=== PATIENT | female | born 1980 | race Hispanic/Latino ===

== ENCOUNTER 2018-03-28 00:59 | Emergency (ER) | payer SELFPAY ==
[2018-03-28] MEDS ORDERED: Lorazepam 2 MG/ML VIAL ONE (01:13)
[2018-03-28 01:57] LABS: #Basophils 0.1 thou/uL (0.0-0.2); #Eosinphils 0.1 thou/uL (0.0-0.7); #Lymphocytes 2.2 thou/uL (1.20-3.40); #Monocytes 0.7 thou/uL (0.11-0.59); #Neutrophils 9.3 thou/uL (1.40-6.50); %Basophils 0.6 % (0.0-1.0); %Eosinophils 1.1 % (0.0-10.0); %Lymphocytes 17.4 % (21.0-51.0); Hemoglobin 13.1 g/dL (12.0-16.0); Mean Corpuscular HGB CONC 35.5 g/dL (32.0-36.0); Mean Corpuscular Hemoglobin 30.9 pg (27.0-31.0); Mean Platelet Volume 8.3 fL (7.4-10.4); Platelet Count 227 thou/uL (130-400); RBC Distribution Width 11.3 % (11.5-14.5); Red Blood Cell (RBC) Count 4.23 mill/uL (4.20-5.40); White Blood Cell (WBC) Count 12.4 thou/uL (4.8-10.8)
[2018-03-28 02:03] LABS: Acetaminophen Less than 6.0 mcg/mL (10.0-30.0); Alcohol Less than 10 mg/dL (Less than 10); CK (CPK) 86 U/L (29-168); Salicylate Less than 8.0 mg/dL (15.0-30.0)
[2018-03-28 02:04] LABS: ALT (SGPT) 15 U/L (8-55); AST (SGOT) 14 U/L (5-34); Albumin 4.2 g/dL (3.5-5.0); Alkaline Phosphatase 87 U/L (40-150); Anion Gap 14 mmol/L (10-20); BUN (Urea Nitrogen) 9 mg/dL (7.0-18.7); Bilirubin, Total 0.4 mg/dL (0.2-1.2); Calc. Creatinine Clearance 0 mL/min (70-130); Calcium 9.3 mg/dL (7.8-10.44); Carbon Dioxide 17 mmol/L (22-29); Chloride 111 mmol/L (98-107); Estimated GFR-MDRD 77; Globulin 3.4 g/dL (2.4-3.5); Glucose 116 mg/dL (70-105); Potassium 3.4 mmol/L (3.5-5.1); Protein, Total 7.6 g/dL (6.0-8.3); Sodium 139 mmol/L (136-145)
[2018-03-28 03:24] LABS: Bilirubin Negative (Negative); Blood, Urine Moderate (Negative); Clarity CLEAR (Clear); Glucose, Urine (Dipstick) Negative (Negative); Leukocyte Trace (Negative); Nitrite Negative (Negative); Protein, Urine (Dipstick) Negative (Neg-Trace); Specific Gravity, Urine 1.008 (1.002-1.036); Urobilinogen 0.2 mg/dL (0.2-1.0); pH, Urine 7.5 (5.0-9.0)
[2018-03-28 03:27] LABS: Bacteria/HPF None Seen HPF (None Seen); Hyaline Casts/LPF 0-3 HYALINE CAST LPF (0-3 Hyaline); Pathc Cast-AUWi Flag 0.14 (0-2.49); Squamous Epithelial 0-3 HPF (0-3); WBC/HPF 0-3 HPF (0-3)
[2018-03-28 03:30] LABS: Pregnancy Test - Urine (BHCG) Negative (Negative); Pregu Control Background? CLEAR/WHITE (CLR/WHITE); Pregu Control Bar Appear? YES (CONTROL BAR); Specific Gravity 1.008 (1.002-1.036)
[2018-03-28 03:39] LABS: Amphetamine Not Detected (NotDetected); Barbiturates Screen Not Detected (NotDetected); Benzodiazepine Screen Not Detected (NotDetected); Cocaine Metabolite Screen Not Detected (NotDetected); Medtox Control Line Valid? VALID (VALID); Medtox Reader # READER 1; Methadone Not Detected (NotDetected); Methamphetamine Not Detected (NotDetected); Opiate Screen Not Detected (NotDetected); Oxycodone Screen Not Detected (NotDetected); Phencyclidine (PCP) Not Detected (NotDetected); THC/Cannabinoid Screen Not Detected (NotDetected); Tricyclic Screen Not Detected (NotDetected)
== END 2018-03-28 06:50 | disposition home or self-care (01) ==
LOC: ERS 00:59
DX: T47.0X2A Poisoning by histamine H2-receptor blockers, intentional self-harm, initial encounter (principal); D64.9 Anemia, unspecified; F41.9 Anxiety disorder, unspecified; Z79.899 Other long term (current) drug therapy
CPT/HCPCS: 36415; 80053; 80306; 80307; 81003; 81015; 81025; 82550; 84443; 85025; 93005; 96374; A4353; J2060

== ENCOUNTER 2018-03-29 13:56 | Emergency (ER) | payer SELFPAY ==
[2018-03-29 14:36] LABS: Pregnancy Test - Urine (BHCG) Negative (Negative)
[2018-03-29 14:37] LABS: Pregu Control Background? CLEAR/WHITE (CLR/WHITE); Pregu Control Bar Appear? YES (CONTROL BAR); Specific Gravity 1.024 (1.002-1.036)
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
== END 2018-03-29 16:19 | disposition home or self-care (01) ==
LOC: ERS 13:56
DX: S06.0X9A Concussion with loss of consciousness of unspecified duration, initial encounter (principal); S00.83XA Contusion of other part of head, initial encounter; D64.9 Anemia, unspecified; F41.9 Anxiety disorder, unspecified; W20.8XXA Other cause of strike by thrown, projected or falling object, initial encounter
CPT/HCPCS: 70450; 70486; 81025

== ENCOUNTER 2019-01-25 14:44 | Outpatient (CLI) | payer OTHER ==
--- NOTE | 2019-01-25 15:21 | ULT ---
Transvaginal pelvic ultrasound INDICATION: Pelvic mass COMPARISON: Prior pelvic ultrasound dated June 02, 2015 FINDINGS: Grayscale, color Doppler and spectral Doppler images were obtained. The uterus measures 8.3 x 5.9 x 4.9 cm. The endometrial stripe measures 1.5 cm. The right and measures 2.8 x 1.9 x 2.4 cm. There is normal flow to the right ovary. The left ovary is predominantly involved with a large cystic abnormality. The large cyst measures 7.9 x 6.7 x 8 cm. This is slightly smaller than on the comparison examination where it measured 9.7 x 9.3 x 8.1 cm. There is suspected debris within this cystic abnormality. The left ovary measured 9.7 x 10.4 x 6.7 cm. There is normal flow to the left ovary. No free fluid is identified. There are small nabothian cysts seen within the level cervix. IMPRESSION: Slight interval decrease in size involving the large cystic abnormality involving the lef t adnexa. Findings are suspicious for a large left cystadenoma. Would recommend further evaluation with MRI of the pelvis with and without contrast for additional characterization.
== END 2019-01-25 14:45 | disposition home or self-care (01) ==
LOC: BICULT 14:44
PROVIDERS: ATTEND Physician Assistant
DX: R19.00 Intra-abdominal and pelvic swelling, mass and lump, unspecified site (principal); N83.8 Other noninflammatory disorders of ovary, fallopian tube and broad ligament
CPT/HCPCS: 76856; 93976

== ENCOUNTER 2019-03-22 12:21 | Emergency (ER) | payer SELFPAY ==
[2019-03-22 13:41] LABS: #Basophils 0.1 thou/uL (0.0-0.2); #Eosinphils 0.2 thou/uL (0.0-0.7); #Monocytes 0.3 thou/uL (0.11-0.59); #Neutrophils 4.2 thou/uL (1.40-6.50); %Basophils 0.9 % (0.0-1.0); %Eosinophils 2.3 % (0.0-10.0); %Lymphocytes 29.2 % (21.0-51.0); %Monocytes 4.9 % (0.0-10.0); %Neutrophils 62.7 % (42.0-75.0); Hemoglobin 12.7 g/dL (12.0-16.0); Mean Corpuscular HGB CONC 34.5 g/dL (32.0-36.0); Mean Corpuscular Hemoglobin 29.9 pg (27.0-31.0); Mean Corpuscular Volume 86.9 fL (78.0-98.0); Mean Platelet Volume 8.5 fL (7.4-10.4); Platelet Count 259 thou/uL (130-400); RBC Distribution Width 11.6 % (11.5-14.5); Red Blood Cell (RBC) Count 4.26 mill/uL (4.20-5.40); White Blood Cell (WBC) Count 6.8 thou/uL (4.8-10.8)
[2019-03-22 13:48] LABS: BHCG - Serum Negative (NEGATIVE); Pregs Control Background? CLEAR/WHITE (CLR/WHITE); Pregs Control Bar Appear? YES (CONTROL BAR)
[2019-03-22 14:09] LABS: ALT (SGPT) 11 U/L (8-55); AST (SGOT) 14 U/L (5-34); Albumin 4.3 g/dL (3.5-5.0); Alkaline Phosphatase 82 U/L (40-110); Anion Gap 10 mmol/L (10-20); BUN (Urea Nitrogen) 9 mg/dL (7.0-18.7); Bilirubin, Total 0.4 mg/dL (0.2-1.2); Calc. Creatinine Clearance 0 mL/min (70-130); Calcium 8.9 mg/dL (7.8-10.44); Carbon Dioxide 25 mmol/L (22-29); Chloride 106 mmol/L (98-107); Estimated GFR-MDRD Greater than 90; Globulin 2.9 g/dL (2.4-3.5); Glucose 87 mg/dL (70-105); Potassium 3.6 mmol/L (3.5-5.1); Protein, Total 7.2 g/dL (6.0-8.3); Sodium 137 mmol/L (136-145)
[2019-03-22 14:30] LABS: Bacteria/HPF None Seen HPF (None Seen); Bilirubin Negative (Negative); Blood, Urine 3+ (Negative); Clarity Clear (Clear); Glucose, Urine (Dipstick) Normal (Negative); Leukocyte Negative Leu/uL (Negative); Nitrite Negative (Negative); Protein, Urine (Dipstick) Negative (Neg-Trace); Urobilinogen Normal mg/dL (Less than 2); WBC/HPF 0-3 HPF (0-3)
== END 2019-03-22 14:57 | disposition home or self-care (01) ==
LOC: ERS 12:21
DX: N94.6 Dysmenorrhea, unspecified (principal)
CPT/HCPCS: 36415; 80053; 81003; 81015; 84703; 85025; 99284

== ENCOUNTER 2019-06-21 08:49 | Day surgery (SDC) | payer OTHER ==
[2019-06-18 16:25] LABS: Mean Corpuscular HGB CONC 34.3 g/dL (32.0-36.0); Mean Corpuscular Hemoglobin 30.3 pg (27.0-31.0); Mean Corpuscular Volume 88.3 fL (78.0-98.0); Mean Platelet Volume 8.3 fL (7.4-10.4); Platelet Count 256 thou/uL (130-400); RBC Distribution Width 11.8 % (11.5-14.5); Red Blood Cell (RBC) Count 4.31 mill/uL (4.20-5.40); White Blood Cell (WBC) Count 9.6 thou/uL (4.8-10.8)
[2019-06-18 16:28] LABS: BHCG - Serum Negative (NEGATIVE); Pregs Control Background? CLEAR/WHITE (CLR/WHITE); Pregs Control Bar Appear? YES (CONTROL BAR)
[2019-06-18 16:30] VITALS: BMI 19.8
[2019-06-21] MEDS ORDERED: Famotidine/PF 20 mg/2ml Vial ONE (09:07)
[2019-06-21] MEDS ORDERED: CeleCOXIB 100 MG CAP ONE ×2 (09:08)
[2019-06-21] MEDS ORDERED: Gabapentin 300 MG CAP ONE (09:09)
[2019-06-21] MEDS ORDERED: Rocuronium Bromide 10 MG/ML (10ML VIAL) ONE (09:29)
[2019-06-21] MEDS ORDERED: Dexamethasone 20 MG/5 ML VIAL ONE (09:29)
[2019-06-21] MEDS ORDERED: Lidocaine 1% PF 5 ML VIAL ONE (09:29)
[2019-06-21] MEDS ORDERED: Ondansetron PF 4 MG/2 ML Vial ONE (09:29)
[2019-06-21] MEDS ORDERED: PHENYLEPHRINE-NS 100 MCG/ML 10 ML SYRINGE ONE (09:29)
[2019-06-21] MEDS ORDERED: PROPOFOL 200 MG/20 ML VIAL ONE (09:29)
[2019-06-21] MEDS ORDERED: Lidocaine 1% w/Epinephrine 1:100K 20 ML VIAL ONE (09:36)
[2019-06-21] MEDS ORDERED: Methylene Blue 50 MG/10 ML AMPUL ONE (09:36)
[2019-06-21] MEDS ORDERED: Bupivacaine PF 0.5% 30 ML VIAL ONE (09:36)
[2019-06-21] MEDS ORDERED: Fentanyl 100 MCG/2 ML VIAL ONE ×3 (10:31→13:16)
[2019-06-21] MEDS ORDERED: Midazolam HCl 2 mg/2 ml Vial ONE (10:44)
[2019-06-21] MEDS ORDERED: Promethazine HCl 25 MG/ML VIAL SLOW IVP PRN (11:50)
[2019-06-21] MEDS ORDERED: Meperidine HCl/PF 25 MG/ML VIAL SLOW IVP PRN (11:50)
[2019-06-21] MEDS ORDERED: HYDROmorphone 2 MG/ML VIAL SLOW IVP PRN (11:50)
[2019-06-21] MEDS ORDERED: Ondansetron HCl/PF 4 MG/2 ML Vial IVP PRN (11:50)
[2019-06-21] MEDS ORDERED: SUGAMMADEX SODIUM 200 MG/2 ML VIAL ONE (12:23)
[2019-06-21] MEDS ORDERED: Meperidine HCl/PF 25 MG/ML VIAL ONE (14:17)
[2019-06-21] MEDS ORDERED: HYDROcodone/Acetaminophen 5/325 mg Tablet ONE (15:42)
--- NOTE | 2019-06-21 19:30 | OP ---
DATE OF PROCEDURE: 06/21/2019 PREOPERATIVE DIAGNOSES: 1. Left adnexal mass. 2. Infertility. POSTOPERATIVE DIAGNOSES: 1. Left ovarian endometrioma. 2. Pelvic adhesive disease. SUPERINTENDENT JOB: Rosemarie Leger PA-C. PROCEDURES PERFORMED: 1. Robotic-assisted left salpingo-oophorectomy. 2. Lysis of adhesions. COMPLICATIONS: None. INTRAOPERATIVE FINDINGS: 1. Normal-appearing vaginal mucosa and cervix. 2. Cervical stenosis, unable to pass the smallest Hegar dilator or uterine sound. 3. Normal-appearing uterus, right ovary, and right fallopian tube. 4. Large approximate 9 to 10 cm left ovarian endometrioma. 5. Pelvic adhesive disease with dense adhesions of the left ovary and cyst wall to the left pelvic sidewall, colon, and cul-de-sac. DESCRIPTION OF PROCEDURE: The patient was taken back to the OR with IV fluids running. When she was in the OR, she was placed in dorsal supine position, and general anesthesia was obtained. Once the patient was asleep, the arms were tucked at her side, and the patient's abdomen and vagina were prepped and draped in normal fashion for gynecologic laparoscopy. The surgeons were gowned and gloved. The bladder was drained with a Sow catheter. An operative speculum was placed in the vagina, and the anterior lip of the cervix was easily identified and grasped with a single-tooth tenaculum. The uterine sound was not able to pass through the cervix. A 9-Welsh Hegar dilator was attempted to pass through the cervix and would also not pass easily with gentle pressure. At this point, the decision to perform chromotubation as discussed at her preoperative visit was terminated for fear of injury to the cervix or uterus. After the tenaculum was removed, a sponge on a stick was placed in the vagina, and the operative speculum was removed. The surgeon's gown and gloves were changed, and attention was turned to the laparoscopic portion of the case. Beginning at the infraumbilical fold, anesthesia was injected underneath the skin, and a 12 mm skin incision was made. A Veress needle was passed through the skin incision, and the abdomen was insufflated without difficulty. Once the abdomen was distended, the Veress needle was removed, and a 12 mm trocar was placed through this incision. The patient was placed in Trendelenburg position with the above findings noted. Immediately on the patient's left was a large ovarian cyst. On the patient's right, there were normal-appearing right ovary and fallopian tube. The cyst was incised, and chocolate-appearing cyst fluid consistent with an endometrioma was suctioned and drained from the cyst. The cyst and ovary were manipulated and noted to be adhered to the left pelvic sidewall, the colon, and the uterus on the patient's left side. The ureter on the patient's left side was identified and noted to be away from the IP ligament and coursing below the site of the cyst wall adhesions. The ovarian stroma was incised. The cyst wall was grasped, and an attempt was made to perform cystectomy alone. Approximately 50% through the cystectomy, the ovary was carefully inspected. The remaining portion of the large cyst was noted to be densely adhered to the ovary. At this point, the ovary was deemed to be unsalvageable, and the decision to perform left salpingo-oophorectomy was made. The patient's IP ligament on the left side was identified, grasped, cauterized, and transected. The left fallopian tube was cauterized and incised freeing it from the left adnexa and pelvis. The remaining ovarian and cyst wall tissue was removed from the ovary and from the cul-de-sac with a combination of hydrodissection and fine dissection technique with monopolar scissors. After the left ovary and cyst were removed, they were placed into an EndoCatch bag. The left pelvic sidewall and cul-de-sac were copiously irrigated and suctioned dry. Any small areas of bleeding were controlled with cauterization. A layer of Renetta hemostatic powder was placed over this area of dissection, and it was inspected with hemostasis noted. Counts were correct. All instruments were removed from the abdomen. The gas was released from the abdomen, as well as the 4 ports. The surgeon's finger was placed through the supraumbilical port, where the Endo Catch bag string was brought through the supraumbilical incision, and the specimen contained in the bag was then brought through the umbilical incision. The incisions were cleaned and dried. The fascial layer of the infraumbilical incision was closed with Vicryl suture. All 4 skin incisions were closed with Monocryl suture and dressed with Dermabond dressing. The sponge stick was removed from the vagina. The patient was cleaned, dried, taken out of lithotomy position, extubated, and transferred to the recovery room in good condition. Job ID: [id number]
== END 2019-06-21 16:50 | disposition home or self-care (01) ==
LOC: SDC 08:49
PROVIDERS: ATTEND Obstetrics & Gynecology
PROC: 0UT14ZZ Resection of Left Ovary, Percutaneous Endoscopic Approach (ICD-10-PCS; principal; 2019-06-21)
PROC: 0UT64ZZ Resection of Left Fallopian Tube, Percutaneous Endoscopic Approach (ICD-10-PCS; principal; 2019-06-21)
DX: D27.1 Benign neoplasm of left ovary (principal); N80.1 Endometriosis of ovary; N73.6 Female pelvic peritoneal adhesions (postinfective); N88.2 Stricture and stenosis of cervix uteri; F32.9 Major depressive disorder, single episode, unspecified; N97.9 Female infertility, unspecified; Z79.899 Other long term (current) drug therapy
CPT/HCPCS: 84703; 85027; 86850; 86900; 86901; 88307; J0690; J1100; J2001; J2175; J2250; J2405; J2704; J3010; Q9968; S0020; S0028

== ENCOUNTER 2019-06-30 08:24 | Outpatient (CLI) | payer OTHER ==
--- NOTE | 2019-06-30 09:58 | CT ---
CT OF THE ABDOMEN AND PELVIS WITHOUT CONTRAST: COMPARISON: None. HISTORY: Pain and chills after recent oophorectomy. TECHNIQUE: Multiple contiguous axial images were obtained in a CT of the abdomen and pelvis without contrast. S agittal and coronal reformats were performed. FINDINGS: Liver, gallbladder, kidneys, adrenal glands, spleen, and pancreas are unremarkable, although evaluati on is limited without IV contrast. Limited visualization of the reproductive organs is unremarkable. No obvious fluid collection is see n in the pelvis adjacent to the reproductive organs. No abdominal or pelvic lymphadenopathy are seen . The large and small bowel are unremarkable. The appendix is unremarkable. The osseous structures, visualized hemithorax, and abdominal wall soft tissues are unremarkable. IMPRESSION: No evidence of acute intraabdominal/pelvic abnormality. POS: [facility]
== END 2019-06-30 08:25 | disposition home or self-care (01) ==
LOC: CT 08:24
PROVIDERS: ATTEND Obstetrics & Gynecology
DX: R10.2 Pelvic and perineal pain (principal); R31.9 Hematuria, unspecified
CPT/HCPCS: 74176

== ENCOUNTER 2020-04-03 14:01 | Outpatient (CLI) | payer OTHER ==
[2020-04-03 14:22] LABS: BHCG - Serum Negative (NEGATIVE); Pregs Control Background? CLEAR/WHITE (CLR/WHITE); Pregs Control Bar Appear? YES (CONTROL BAR)
--- NOTE | 2020-04-03 16:13 | RAD ---
Exam: Hysterosalpingogram HISTORY: Female infertility. Exposure: 1.6 minutes, 178.6 mcg/sq m FINDINGS: Retrograde opacification of the endometrium. There is no evidence of significant right fall opian tube opacification. There is only partial opacification of left fallopian tube. No free spillage in the left or right hemipelvis balloon was deflated. Grossly unremarkable lower uterine seg ment. IMPRESSION: No evidence of free spillage in the left and right hemipelvis. No evidence of tubal paten cy.
== END 2020-04-03 14:02 | disposition home or self-care (01) ==
LOC: RAD 14:01
PROVIDERS: ATTEND Obstetrics & Gynecology
DX: N97.9 Female infertility, unspecified (principal)
CPT/HCPCS: 36415; 58340; 74740; 84703

== ENCOUNTER 2021-01-30 15:07 | Outpatient (CLI) | payer OTHER | END 2021-01-30 15:08 | disposition home or self-care (01) | LOC: BICULT 15:07 | PROVIDERS: ATTEND Physician Assistant | DX: Z13.31 Encounter for screening for depression (principal); N63.10 Unspecified lump in the right breast, unspecified quadrant | CPT/HCPCS: 77066; G0279 ==